=== PATIENT | male | born 1995 ===

== ENCOUNTER 2023-04-28 14:30 | Outpatient (CLI) | payer OTHER ==
--- NOTE | 2023-04-29 12:05 | XRAY Report ---
PROCEDURE: Lumbar Spine 2-3V INDICATIONS: UNSPECIFIED LOW BACK PAIN TECHNIQUE: 3 views of the lumbar spine were acquired. COMPARISON: None. FINDINGS: Bones: 5 [id number] vertebrae are present. There is normal bony alignment. No vertebral body compression fractures. No suspicious bony lesions. Mild degenerative disc and facet disease in lumb ar spine in the lower lumbar spine. Soft tissues: Overlying bowel gas pattern is normal. No suspicious soft tissue calcifications. 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 If there radiculopathy symptom s, consider MRI for further evaluation. Reviewed by: Mariam Silvestre MD on 04/29/2023 12:03 PM PST Approved by: Mariam Silvestre MD on 04/29/2023 12:03 PM PST Station ID: [id number]
== END 2023-04-28 14:45 | disposition home or self-care (01) ==
LOC: DI.N 14:30
PROVIDERS: ATTEND Nurse Practitioner
DX: M47.816 Spondylosis without myelopathy or radiculopathy, lumbar region (principal); M51.36 Other intervertebral disc degeneration, lumbar region